=== PATIENT | female | born 1955 | race Caucasian/White ===

== ENCOUNTER → 2018-01-11 | Outpatient (CLI) | payer OTHER | END | disposition home or self-care (01) | LOC: LAB EV 15:51 → LAB SHORT 15:51 | DX: E04.2 Nontoxic multinodular goiter (principal) | CPT/HCPCS: 36415; 84443 ==

== ENCOUNTER 2018-07-03 12:28 | Day surgery (SDC) | payer OTHER ==
[~2018-07-03] VITALS: Ht 177.8 cm; Wt 103.0 kg
[~2018-07-03 12:28] MED LIST: ALLEGRA ALLERG180 MG PO; BENADRYL25 MG PO; BIOTIN1 MG PO; CHOL10002 PO; Flonase 0.05% N16 GM; GLUCOSAMINE CH1 EAC3 PO; SELENIUM 200 MCG PO; THYROID SUPPORT PO; Vitamin B Comple1 EA PO; Vitamin C100 M1 PO; [UNRECOGNIZED DRUG - OTHER] PO; [UNRECOGNIZED DRUG - OTHER] PO
--- NOTE | 2018-07-03 12:59 | NUR ---
PT ADMITTED TO [facility]. AGREES WITH PLANNED SURGERY. MEDS, ALLERGIES AND HX REVIEWED. LUNG SOUNDS CLEAR.
--- NOTE | 2018-07-03 13:05 | NUR ---
NOCONORN SWAB TO BILATERAL NARES.
--- NOTE | 2018-07-03 16:56 | NUR ---
# 14 IN & OUT CATH.550ML RETURNED, CLEAR YELLOW URINE.
[2018-07-04 04:40] LABS: BASOPHILS ABSOLUTE AUTO 0.05 K/mm3 (0.00-0.23); BASOPHILS PERCENT AUTO 0 % (0-2); EOSINOPHILS ABSOLUTE AUTO 0.28 K/mm3 (0.00-0.68); EOSINOPHILS PERCENT AUTO 2 % (0-6); Hematocrit 35.1 % (33.0-51.0); Hemoglobin 11.2 g/dL (11.5-16.0); IMMATURE GRAN ABSOLUTE AUTO 0.05 K/mm3 (0.00-0.10); IMMATURE GRAN PERCENT AUTO 0 % (0-1); LYMPHOCYTES ABSOLUTE AUTO 3.01 K/mm3 (0.84-5.20); LYMPHOCYTES PERCENT AUTO 24 % (21-46); MONOCYTES ABSOLUTE AUTO 1.07 K/mm3 (0.16-1.47); MONOCYTES PERCENT AUTO 8 % (4-13); Mean Corpuscular HGB Conc 31.9 g/dL (31.5-36.5); Mean Corpuscular Volume 97 fL (80-100); Mean Platelet Volume 9.4 fL (9.1-12.4); NEUTROPHILS ABSOLUTE AUTO 8.26 K/mm3 (1.96-9.15); NEUTROPHILS PERCENT AUTO 65 % (41-73); Platelet Count 210 K/mm3 (150-400); RDW Coefficient Variation 12.4 % (11.7-14.2); RDW Standard Deviation 44.1 fL (35.1-46.3); Red Blood Cell Count 3.61 M/mm3 (3.80-5.20); White Blood Cell Count 12.72 K/mm3 (4.00-11.30)
[2018-07-04 04:57] LABS: Anion Gap 7 mmol/L (6-16); Blood Urea Nitrogen 13 mg/dL (8-24); Bun/Creatinine Ratio 15.7 (12.0-20.0); CO2, Blood 25 mmol/L (21-32); Calcium, Blood 7.8 mg/dL (8.5-10.1); Chloride, Blood 110 mmol/L (98-108); Creatinine, Blood 0.83 mg/dL (0.40-1.00); Glomerular Filtration Rate >60 (60-); Glucose, Blood 99 mg/dL (70-99); Magnesium, Blood 1.9 mg/dL (1.6-2.4); Sodium, Blood 142 mmol/L (136-145)
--- NOTE | 2018-07-04 06:50 | NUR ---
LYING IN SEMI FOWLERS WITH EYES OPEN. WAS TREATED FOR PAIN X3 THIS SHIFT, TOLERATED WELL. AMBULATED WELL IN ROOM WITH FWW AND STANDBY ASSIST. DENIES FURTHER NEEDS OR WANTS AT THIS TIME. SAFETY MEASURES IN PLACE. WILL GIVE HAND OFF TO ONCOMING SHIFT USING SBAR.
--- NOTE | 2018-07-04 07:21 | NUR ---
DR BYERS HERE, HUMAN [employer]OURCES VICE PRESIDENT ROUNDED WITH
[2018-07-04] MEDS ORDERED: ENOX40I SC (08:42)
[2018-07-04] MEDS ORDERED: ASPI325EC PO (08:43)
[2018-07-04] MEDS ORDERED: OXYC5 PO (08:43)
--- NOTE | 2018-07-04 14:31 | NUR ---
07/04/18 1431 Toshia King CHART VERIFICATIIONS, EDITS.
--- NOTE | 2018-07-04 15:34 | NUR ---
ORTHO COORDINATOR TO ROOM TO ASSIST WITH DRESSINGS, SEE D/C NOTE BY ORTHO COORDINATOR. PT BEEN EATING AND DRINKING WELL. PT BEING SENT WITH DRESSING SUPPLIES AND ICE MACHINE. PT/FAMILY REPORTS UNDERSTANDING OF INSTRUCTIONS. PT BEEN CLEARED BY THERAPY TO GO HOME. PT REPORTS HAVING APPR EQUIP AT HOME.
--- NOTE | 2018-07-04 16:03 | NUR ---
navigation sites continue to bleed consistant ooze throughout day. Increased swelling and bruising noted lateral knee to posterior knee despite elevation and ice. Dr. Hussein notified, discharge orders changed to STOP lovenox, start Aspirin 325mg daily tomorrow. 4x4 gauze dressing, abd and kirill wrap applied.Instructed not to remove dressing and shower until bleeding stops. Aquacel dressing remains on knee incision with dime size area of drainage top portion of incision and 2 smaller drainage spots lower portion of incision. Reviewed s/s infection and instructed patient and spouse on changing dressing, reporting increased bleeding/swelling. Lenora JAIME for Dr. Hussein to follow up with patient tomorrow. discharged to home at this time.
== END 2018-07-04 16:03 | disposition home or self-care (01) ==
LOC: ORSCMMR 12:28 → SURS 12:28 → ORSCMMR 12:29 → ORD 13:45 → ORSCMMR 13:45 → SURS 17:25 → ORSCMMR 07-04 16:03
PROVIDERS: Orthopaedic Surgery
PROC: 8E0YXBZ Computer Assisted Procedure of Lower Extremity (ICD-10-PCS; principal; 2018-07-03 13:45)
PROC: 0SRD0J9 Replacement of Left Knee Joint with Synthetic Substitute, Cemented, Open Approach (ICD-10-PCS; principal; 2018-07-03 13:45)
DX: M17.11 Unilateral primary osteoarthritis, right knee (principal); E66.9 Obesity, unspecified; Z68.33 Body mass index [BMI] 33.0-33.9, adult; J45.909 Unspecified asthma, uncomplicated; Z79.899 Other long term (current) drug therapy
CPT/HCPCS: 36415; 73560-LT; 80048; 83735; 85025; 88300; 97110; 97116; 97162; 97530; C1713; C1776; J0171; J0690; J0735; J1170; J1650; J1885; J2250; J2405; J2765; J2795; J3010; J3370; J7120

== ENCOUNTER 2020-03-26 09:11 | Day surgery (SDC) | payer OTHER ==
[~2020-03-26] VITALS: Ht 177.8 cm; Wt 101.5 kg
[~2020-03-26 09:11] MED LIST changes: +ASPI325EC PO; +ENOX40I SC; +OXYC5 PO
[2020-03-26] MEDS ORDERED: DHEA (09:34)
== END 2020-03-26 10:59 | disposition home or self-care (01) ==
LOC: ORSCSDS 09:11
PROVIDERS: Internal Medicine Gastroenterology
PROC: 0DBK8ZX Excision of Ascending Colon, Via Natural or Artificial Opening Endoscopic, Diagnostic (ICD-10-PCS; principal; 2020-03-26 10:30)
PROC: 0DBE8ZX Excision of Large Intestine, Via Natural or Artificial Opening Endoscopic, Diagnostic (ICD-10-PCS; principal; 2020-03-26 10:30)
DX: R19.4 Change in bowel habit (principal); D37.4 Neoplasm of uncertain behavior of colon; K64.8 Other hemorrhoids; Z86.010 Personal history of colon polyps; Z80.0 Family history of malignant neoplasm of digestive organs; E03.9 Hypothyroidism, unspecified; J45.909 Unspecified asthma, uncomplicated
CPT/HCPCS: 88305; J2704; J7120

== ENCOUNTER → 2022-03-02 | Outpatient (CLI) | payer OTHER, MEDICARE ==
[~2022-03-02] MED LIST changes: +DHEA
== END ==
LOC: LAB 17:42 → LAB SHORT 17:42
DX: H60.502 Unspecified acute noninfective otitis externa, left ear (principal)
CPT/HCPCS: 87070; 87077; 87147; 87186; 87205

== ENCOUNTER → 2022-03-30 | Outpatient (CLI) | payer OTHER, MEDICARE | END | disposition home or self-care (01) | LOC: LAB SHORT 12:00 | DX: A49.02 Methicillin resistant Staphylococcus aureus infection, unspecified site (principal) | CPT/HCPCS: 87070; 87075; 87205 ==

== ENCOUNTER 2022-08-09 07:52 | Emergency (ER) | payer MEDICARE, OTHER ==
[~2022-08-09] VITALS: Ht 177.8 cm; Wt 102.1 kg
[2022-08-09 07:59] VITALS: BP 120/92
[2022-08-09] MEDS ORDERED: IBUP600 PO (08:01)
[2022-08-09] MEDS ORDERED: GABA100 PO (08:01)
[2022-08-09] MEDS ORDERED: Norco 5-325 Ta1 EACH (08:02)
== END 2022-08-09 08:13 | disposition home or self-care (01) ==
LOC: ER 07:52
DX: D17.22 Benign lipomatous neoplasm of skin and subcutaneous tissue of left arm (principal); Z88.5 Allergy status to narcotic agent; Z79.899 Other long term (current) drug therapy
CPT/HCPCS: 99283

== ENCOUNTER 2022-09-02 08:24 | Emergency (ER) | payer MEDICARE, OTHER ==
[~2022-09-02] VITALS: Ht 170.2 cm; Wt 90.7 kg
[~2022-09-02 08:24] MED LIST changes: +GABA100 PO; +IBUP600 PO; +Norco 5-325 Ta1 EACH
[2022-09-02 09:51] VITALS: BP 140/112
[2022-09-02] MEDS ORDERED: Percocet 5-3251 EACH PO (10:04)
== END 2022-09-02 10:05 | disposition home or self-care (01) ==
LOC: ER 08:24
DX: G56.92 Unspecified mononeuropathy of left upper limb (principal); Z88.5 Allergy status to narcotic agent
CPT/HCPCS: 99282

== ENCOUNTER 2024-07-12 16:22 | Emergency (ER) | payer OTHER, MEDICARE ==
[~2024-07-12] VITALS: Ht 177.8 cm; Wt 97.5 kg
[~2024-07-12 16:22] MED LIST changes: +Percocet 5-3251 EACH PO
[2024-07-12] MEDS ORDERED: TROSPIUM CHLORI20 M1 PO (18:15)
[2024-07-12] MEDS ORDERED: QVAR REDIHALE10.6 G3 INH (18:18)
[2024-07-12 19:00] VITALS: BP 135/89
[2024-07-12] MEDS ORDERED: RX Prepack 6 Tabs Oxycodone 5mg UD ONE (19:10)
== END 2024-07-12 19:26 | disposition home or self-care (01) ==
LOC: ER 16:22
DX: S20.212A Contusion of left front wall of thorax, initial encounter (principal); J45.909 Unspecified asthma, uncomplicated; Z91.011 Allergy to milk products; Z88.5 Allergy status to narcotic agent; Z91.018 Allergy to other foods; Z79.899 Other long term (current) drug therapy; W01.0XXA Fall on same level from slipping, tripping and stumbling without subsequent striking against object, initial encounter
CPT/HCPCS: 71100; 99283-25; A9270